=== PATIENT | female | born 1955 | race Caucasian/White ===

== ENCOUNTER 2017-02-13 09:42 | Emergency (ER) | payer OTHER ==
[~2017-02-13] VITALS: Ht 157.5 cm; Wt 44.5 kg
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
[2017-02-13 10:12] LABS: ABSOLUTE BASOPHIL COUNT 0 /CUMM (0.0-0.2); ABSOLUTE EOSINOPHIL COUNT 0 /CUMM (0.0-0.7); ABSOLUTE GRANULOCYTE CT 21.4 /CUMM (1.4-6.5); ABSOLUTE LYMPH COUNT 4.4 /CUMM (1.2-3.4); ABSOLUTE MONOCYTE COUNT 0.3 /CUMM (0.10-0.60); BASOPHIL % 0.2 % (0.0-2.0); EOSINOPHIL % 0.2 % (0-5); GRANULOCYTE % 81.7 % (42.2-75.2); HEMATOCRIT 43.3 % (37-47); MEAN CORPUSCULAR HGB 31.8 PG (27.0-31.0); MEAN CORPUSCULAR VOLUME 99.5 FL (81.0-99.0); MEAN PLATELET VOLUME 9.9 FL (7.4-10.4); PLATELET COUNT 74 /CUMM (130-400); RBC DISTRIBUTION WIDTH 16.5 % (11.5-14.5); RED BLOOD CELL CT 4.36 /CUMM (4.20-5.40); WHITE BLOOD CELL COUNT 26.2 /CUMM (4.8-10.8)
--- NOTE | 2017-02-13 10:24 | RADIOLOGY REPORT ---
EXAMINATION: XR PORTABLE CHEST CLINICAL INFORMATION: Post arrest COMPARISON: None TECHNIQUE: Portable AP supine view of the chest was obtained. FINDINGS: ET tube tip terminates 5 cm above sangeeta. The heart is not enlarged. Patchy opacity seen in the mid and lower right lung and left lung base. A skinfold is seen overlying the left lung apex without obvious pneumothorax. No pleural effusion. Note is made of a fracture of the left seventh and eighth rib laterally. IMPRESSION: 1. ET tube tip terminates 5 cm above sangeeta. 2. Patchy opacities in the mid and lower right lung and left retrocardiac region may reflect secretions or aspiration post arrest. 3. Left rib fractures involving at least the left seventh and eighth rib fractures, correlate with CPR. No obvious left-sided pneumothorax. Recommend reassessment on follow-up.
[2017-02-13 10:26] VITALS: BP 126/62
== END 2017-02-13 10:30 | disposition short-term general hospital (02) ==
LOC: ERH 09:42
PROVIDERS: Emergency Medicine
DX: I46.9 Cardiac arrest, cause unspecified (principal)
CPT/HCPCS: 1344; 1387; 71045; 93005; 93010; 94799; 99291